=== PATIENT | female | born 1980 | race Caucasian/White ===

== ENCOUNTER 2018-01-05 05:51 | Emergency (ER) | payer BC, SELFPAY ==
--- NOTE | 2018-01-05 06:09 | DI.CT.S_ITS ---
PROCEDURE: CT ABDOMEN PELVIS WO CON INDICATIONS: r flank pain TECHNIQUE: Noncontrast 5 mm thick sections acquired from the diaphragms to the symphysis. 5 mm thick coronal and sagittal reformats were then performed. For radiation dose reduction, the following was used: automated exposure control, adjustment of mA and/or kV according to patient size. COMPARISON: [facility], CT, IVP (ABD & PEL WWO CONTRAST), 10/11/2016, 10:25. FINDINGS: Image quality: Excellent. Lung bases: Lung bases are clear. Heart size is normal. Urinary system: Left kidney is normal in size. There is moderate right renal enlargement. There is moderate right hydronephrosis and right ureteral dilatation. Within the right distal ureter, there is a 5 mm diameter calculus with Hounsfield units of 385. No left hydronephrosis nor left ureteral dilatation. Bladder wall thickness is normal; no calcified bladder stones. Other solid organs: Liver is normal in size. Gallbladder is within normal limits. Pancreas is normal in contours. Spleen is normal in size. No adrenal nodules. Peritoneum and bowel: Unenhanced bowel loops demonstrate normal wall thickness and caliber. No free fluid or air. Normal appendix. Nodes and vessels: No retroperitoneal or mesenteric adenopathy by size criteria. Aorta and inferior vena cava are normal in caliber. Abdominal wall: Small fat-containing umbilical hernia. Pelvis: No free pelvic fluid. No inguinal hernias or adenopathy. Bones: No suspicious bony lesions. No vertebral body compression fractures. IMPRESSION: 1. Right distal ureteral calculus associated with moderate right hydronephrosis. 2. Normal appendix. 3. Small fat-containing umbilical hernia.. Dictated by: Shelly Douglas M.D. on 01/05/2018 at 8:21 Approved by: Shelly Douglas M.D. on 01/05/2018 at 8:24
[2018-01-05 06:11] LABS: RBC Urine None Seen (0-5/HPF); WBC Urine None Seen (0-5/HPF)
[2018-01-05 06:13] LABS: Appearance Urine UA CLEAR; Bilirubin Urine UA NEGATIVE (NEGATIVE); Color Urine UA YELLOW; Glucose Urine UA NEGATIVE (Normal); Ketones Urine UA NEGATIVE (NEGATIVE); Leukocyte Esterase Urine UA NEGATIVE (NEGATIVE); Nitrite Urine UA POSITIVE (Negative); Occult Blood Urine UA NEGATIVE (Negative); Protein Urine UA NEGATIVE (Negative); Specific Gravity Urine UA 1.015 (1.000-1.035); Urobilinogen Urine UA 0.2 E.U./dL (0.2); pH Urine UA >= 9.0 (4.5-8.0)
[2018-01-05 06:17] VITALS: BP 114/78; PULSE 86; RESP 22; TEMP 37.2; O2SAT 96
[2018-01-05 06:20] LABS: Bacteria Urine Occasional (0-1); Squamous Epithelial Cell Urine 1-5 /HPF
[2018-01-05 06:21] LABS: Culture Indicated Urine Cult Not Indicated
[2018-01-05 06:22] LABS: Pregnancy Test Urine Negative (Negative)
[2018-01-05] MEDS: KETOROLAC 60 MG/2 ML VIAL 30 MG IV (06:35)
[2018-01-05] MEDS: HYDROMORPHONE 0.5 MG INJ IV (06:35)
--- NOTE | 2018-01-05 06:38 | ED.FEMALEGU ---
HPI - Female Genitourinary General Chief complaint: Urogenital-Female Stated complaint: ABDOMINAL PAIN AND VOMITING Time Seen by Provider: 01/05/18 05:55 History of Present Illness HPI Narrative: HPI 37-year-old female presents for evaluation poorly characterized right flank pain that appears to be paroxysmal, unclear if pain is radiating, denies fevers, chills, vaginal discharge or discomfort, continues pass flatus and stool at baseline, pain is moderate to severe, pain began approximately one hour prior to arrival. Patient reports a history of a prior abdominal surgery the one where they go in through [facility]. M/S/F/SocHx notable for: please see HPI; remainder reviewed with patient and in chart. ROS: Negative constitutional, eye, cardiovascular, pulmonary, GI, , MSK, skin, neurologic, psychiatric, endocrine unless noted in the HPI. Exam Gen: pleasant, standing, shifting, moving, trying to get comfortable. HEENT: NC, AT, PEERL, EOMI. Resp: Clear to auscultation bilaterally, normal work of breathing, no accessory muscle usage. Card: Regular rate and rhythm with no murmurs, rubs, or gallops, extremities warm and well perfused. GI: Non-tender to palpation throughout all quadrants, no focal tenderness at McBurney's point, negative Duncan's sign, non-distended, no rebound or guarding. : mild right sided CVA tenderness to percussion, no left sided CVA tenderness to percussion. No suprapubic tenderness to palpation. MSK: No visible deformities, strength and tone WNL. Skin: Normal color with no visible lesions. Neuro: AO x 3, no facial asymmetry, vision and hearing WNL. Psych: Mood and affect appropriate. Labs / Imaging (pertinent): UA, hCG CBC, CMP, lipase, CT abdomen/pelvis pending MDM Previous chart, nursing note, and vitals reviewed. A: 37-year-old female presents for evaluation poorly characterized right flank pain that appears to be paroxysmal and has been present for one hour. DDx: renal colic, UTI, pyelonephritis, AAA, biliary disease (colic/cholelithiasis/cholecystitis), large bowel disease (diverticulitis/appendicitis),ovarian torsion, hemorrhagic cyst, ectopic . Evaluation: presentation strongly suggestive of ureterolithiasis, 30 mg Toradol given. Laboratory studies and imaging pending at time of patient care transfer to the [facility] provider, Dr. Dubon. Impression: flank pain. (please reference below for remainder of encounter information) Related Data Previous Rx's Medication Instructions Recorded ciprofloxacin HCl [Cipro] 500 mg PO BID 7 Days #0 tab 02/19/16 ondansetron [Zofran ODT] 4 mg SUBLINGUAL Q6HP PRN #10 odt 02/19/16 hydrocodone-acetaminophen 0 tab PO Q6HP PRN #15 tab 09/11/16 ondansetron [Zofran ODT] 4 mg SUBLINGUAL Q6HP PRN #20 odt 09/11/16 sulfamethoxazole-trimethoprim 1 tab PO BID 14 Days #0 tab 09/11/16 Allergies Allergy/AdvReac Type Severity Reaction Status Date / Time adhesive [ADHESIVE] Allergy Intermediate pulls skin Unverified 10/30/17 12:37 [facility] Social History Smoking Status: Never smoker Exam Initial Vital Signs Initial Vital Signs: Vital Signs Temperature 99 F 01/05/18 06:17 Pulse Rate 86 01/05/18 06:17 Respiratory Rate 22 01/05/18 06:17 Blood Pressure 114/78 01/05/18 06:17 Pulse Oximetry 96 01/05/18 06:17 Course Orders Ordered: ED Orders 01/05/18 06:05 Test Urine Stat UA Complete [Urinalysis and Microscopic] Stat 01/05/18 06:09 CT abdomen pelvis wo con Stat 01/05/18 06:10 Complete Blood Count AUTO DIFF Stat Comprehensive Metabolic Panel Stat Urinalysis and Microscopic Stat Hydromorphone HCl (Dilaudid) 0.5 mg IV NOW PRN PRN Reason: pain Last Admin: 01/05/18 06:35 Dose: 0.5 mg Discontinued Medications Ketorolac Tromethamine (Toradol) 30 mg IV NOW ONE Stop: 01/05/18 06:10 Last Admin: 01/05/18 06:35 Dose: 30 mg Vital Signs - 8 hr 01/05/18 06:17 Temperature 99 F Pulse Rate 86 Respiratory Rate 22 Blood Pressure [Left Arm] 114/78 Pulse Oximetry 96 MDM - Female Genitourinary Lab Data Lab Results 01/05/18 01/05/18 Range/Units 06:05 06:05 Urine Color Yellow Urine Appearance Clear Urine pH >= 9.0 H (4.5-8.0) Ur Specific [place] 1.015 (1.000-1.035) Urine Protein Negative (Negative) Urine Glucose (UA) Negative (Normal) g/dL Urine Ketones Negative (NEGATIVE) Urine Occult Blood Negative (Negative) Urine Nitrate Positive H (Negative) Urine Bilirubin Negative (NEGATIVE) Urine Urobilinogen 0.2 (0.2) E.U./dL Ur Leukocyte Esterase Negative (NEGATIVE) Urine RBC None seen (0-5/HPF) Urine WBC None seen (0-5/HPF) Ur Squamous Epith Cells 1-5 /hpf Urine Bacteria Occasional (0-1) (None) Ur Culture Indicated? Cult not indicated Micro UA Comment Not Reportable Urine Test Negative (Negative) Discharge Plan Departure Prescriptions: No Action ciprofloxacin HCl [Cipro] 500 MG tablet 500 mg PO BID 7 Days Qty: 0 RF: 0 ondansetron [Zofran ODT] 4 MG tablet,disintegrating 4 mg Sublingual Q6HP PRNQty: 10 RF: 0 hydrocodone-acetaminophen 5 MG/325 MG tablet PO Q6HP PRNQty: 15 RF: 0 sulfamethoxazole-trimethoprim 800 MG/160 MG tablet 1 tab PO BID 14 Days Qty: 0 RF: 0 ondansetron [Zofran ODT] 4 MG tablet,disintegrating 4 mg Sublingual Q6HP PRNQty: 20 RF: 0
[2018-01-05 06:42] LABS: Add Manual Diff / Slide Review NO; Basophils Percent Auto 0.2 % (0-2); Eosinophils Percent Auto 0.1 % (2-4); Hematocrit 40.6 % (36-46); Hemoglobin 13.5 g/dL (12.0-16.0); Lymphocytes Percent Auto 5.8 % (25-40); Mean Corpuscular HGB Conc 33.2 % (30-36); Mean Corpuscular Hemoglobin 30.9 PG (26-34); Neutrophils Absolute Auto 10400 /uL (3000-5900); Neutrophils Percent Auto 88.9 % (50-75); Platelet Count 224 X10^3/uL (150-400); Red Blood Cell Count 4.36 X10^6/uL (4.0-5.2); Red Cell Distribution Width 13.4 % (11.6-14.8); White Blood Cell Count 11.7 X10^3/uL (4.5-11.0)
[2018-01-05 06:53] LABS: Alanine Aminotransferase 29 IU/L (9-52); Albumin 4.4 g/dL (3.5-5.0); Albumin Globulin Ratio 1.5 (1.0-2.8); Alkaline Phosphatase 91 U/L (38-126); Aspartate Aminotransferase 27 IU/L (14-36); Bilirubin Total 0.4 mg/dL (0.2-1.3); Blood Urea Nitrogen 21 mg/dL (7-17); Calcium 9.2 mg/dL (8.4-10.2); Carbon Dioxide 25 mmol/L (22-32); Chloride 103 mmol/L (98-107); Estimated Glomerular Filt Rate > 60.0 mL/min (>60); Glucose 140 mg/dL (70-100); HEMOLYSIS 21 (0-50); Potassium 4.1 mmol/L (3.4-5.1); Sodium 140 mmol/L (137-145); Total Protein 7.4 g/dL (6.3-8.2)
[2018-01-05 07:44] VITALS: BP 99/65; PULSE 72; RESP 16; O2SAT 96
[2018-01-05] MEDS: MORPHINE 5 MG/ML INJ 4 MG IV (09:01)
[2018-01-05 09:07] VITALS: BP 111/70; PULSE 73; RESP 16; O2SAT 98
== END 2018-01-05 09:20 | disposition home or self-care (01) ==
PROVIDERS: Emergency Medicine; Emergency Provider Emergency Medicine
DX: R10.9 Unspecified abdominal pain (principal)
CPT/HCPCS: 74176; 80053; 81001; 81025; 85025; 96374; 96375; 99283; 99284; J1170; J1885; J2270